=== PATIENT | male | born 1950 | race Caucasian/White ===

== ENCOUNTER 2018-12-27 09:48 | Inpatient (IN) | payer MEDICARE ==
[~2018-12-27] VITALS: Ht 188 cm; Wt 112.0 kg
[2018-12-27] MEDS ORDERED: ZESTORETIC 20-121 EA PO (10:26)
[2018-12-27] MEDS ORDERED: LO-DOSE ASPIRIN81 MG PO (10:31)
[2018-12-27 10:52] LABS: BASOPHILS ABSOLUTE AUTO 0.03 K/mm3 (0.00-0.23); BASOPHILS PERCENT AUTO 0 % (0-2); EOSINOPHILS ABSOLUTE AUTO 0.07 K/mm3 (0.00-0.68); EOSINOPHILS PERCENT AUTO 1 % (0-6); Hematocrit 47.2 % (37.0-53.0); Hemoglobin 16.6 g/dL (13.5-17.5); IMMATURE GRAN ABSOLUTE AUTO 0.05 K/mm3 (0.00-0.10); IMMATURE GRAN PERCENT AUTO 1 % (0-1); LYMPHOCYTES ABSOLUTE AUTO 1.33 K/mm3 (0.84-5.20); LYMPHOCYTES PERCENT AUTO 19 % (21-46); MONOCYTES ABSOLUTE AUTO 0.49 K/mm3 (0.16-1.47); MONOCYTES PERCENT AUTO 7 % (4-13); Mean Corpuscular HGB 31.7 pg (26.0-34.0); Mean Corpuscular HGB Conc 35.2 g/dL (31.5-36.5); Mean Corpuscular Volume 90 fL (80-100); Mean Platelet Volume 11.2 fL (9.1-12.4); NEUTROPHILS ABSOLUTE AUTO 5.23 K/mm3 (1.96-9.15); NEUTROPHILS PERCENT AUTO 73 % (41-73); Platelet Count 228 K/mm3 (150-400); RDW Coefficient Variation 12.1 % (11.7-14.2); RDW Standard Deviation 39.8 fL (35.1-46.3); Red Blood Cell Count 5.24 M/mm3 (4.30-5.90)
[2018-12-27 11:14] LABS: Alanine Aminotransfer (ALT/SGP 60 U/L (12-78); Albumin, Blood 3.9 g/dL (3.4-5.0); Albumin/Globulin Ratio 1.1 (0.8-1.8); Alk Phos 63 U/L (50-136); Anion Gap 6 mmol/L (6-16); Aspartate Aminotrans (AST/SGOT 40 U/L (12-37); Bilirubin, Total 0.8 mg/dL (0.1-1.0); Blood Urea Nitrogen 14 mg/dL (8-24); Bun/Creatinine Ratio 15.9 (12.0-20.0); CO2, Blood 27 mmol/L (21-32); Calcium, Blood 8.9 mg/dL (8.5-10.1); Chloride, Blood 99 mmol/L (98-108); Creatinine, Blood 0.88 mg/dL (0.60-1.20); Globulin, Blood 3.7 g/dL (2.2-4.0); Glomerular Filtration Rate >60 (60-); Glucose, Blood 154 mg/dL (70-99); Potassium, Blood 3.7 mmol/L (3.5-5.5); Sodium, Blood 132 mmol/L (136-145); Total Protein, Blood 7.6 g/dL (6.4-8.2)
[2018-12-27 11:15] LABS: Troponin I 0.026 ng/mL (0.000-0.040)
[2018-12-27] MEDS ORDERED: Salmon Oil 1,01 EACH PO (13:25)
[2018-12-27 13:49] LABS: International Normalized Ratio 1.04
[2018-12-27 13:53] LABS: Very Low Density Lipoprot Chol 39 mg/dL (6-32)
[2018-12-27 13:56] LABS: CHOL/HDL RATIO 8.1; Cholesterol 236 mg/dL (50-200); HDL Cholesterol 29 mg/dL (>39); LDL/HDL RATIO 5.8; Low Density Lipoprotein Chol 168 mg/dL (0-110); Triglycerides 195 mg/dL (30-160)
[2018-12-27] MEDS ORDERED: Vitamin D2000 UNIT PO (14:35)
--- NOTE | 2018-12-27 15:05 | NUR ---
PT ADMITTED PT ADMITTED AT 1428. PT IN STABLE CONDITION WITH VSS. PT ORIENTED TO ROOM & GIVEN CALL LIGHT IN. PT DENIES CP AT THIS TIME. TELE RUNNING NSR AT 79 PER TUBE BENDER HAND. WILL CONTINUE TO MONITOR UNTIL TURNOVER IS COMPLETE.
[2018-12-27 17:04] LABS: Source, Urine Voided
--- NOTE | 2018-12-27 17:11 | NUR ---
SHIFT SUMMARY NO CHANGES IN ASSESSMENT AT THIS TIME. VSS. PT STARTED ON HEPARIN DRIP. TOLERATING WELL. PT & EDUCATED ON POSSIBLE BLEEDING RELATED SIDE EFFECTS OF HEPARIN. PT DENIES CP AT THIS TIME. PT EDUCATED TO INFORM STAFF IRENE IF CP STARTS. WILL CONTINUE TO MONITOR UNTIL TURNOVER IS COMPLETE.
[2018-12-27 17:23] LABS: Bilirubin, Urine Neg (Neg); Blood, Urine Neg (Neg); Glucose Qualitative, Urine Neg (Neg); Ketones, Urine Neg (Neg); Leukocyte Esterase, Urine Neg (Neg); Nitrite, Urine Neg (Neg); Protein, Urine Neg (Neg); Urobilinogen, Urine NORM (Normal)
[2018-12-27 17:55] LABS: Appearance, Urine Clear (Clear); Color, Urine Yellow (P-Yellow)
--- NOTE | 2018-12-28 00:16 | NUR ---
12/28/18 0000 NPO AND SLEEPER WAS GIVEN EARLIER. DENIES ANY S/S OR DISCOMFORT. HEART MONITOR SHOWING SINUS KEVEN. AT 54 WITH FIRST DEGREE AV BLOCK PER BIAS BINDING CUTTER. HEPARIN DRIP RATE ADJUSTED PER PHARMACIST.
[2018-12-28 02:50] LABS: BASOPHILS ABSOLUTE AUTO 0.06 K/mm3 (0.00-0.23); BASOPHILS PERCENT AUTO 1 % (0-2); EOSINOPHILS ABSOLUTE AUTO 0.16 K/mm3 (0.00-0.68); EOSINOPHILS PERCENT AUTO 2 % (0-6); IMMATURE GRAN ABSOLUTE AUTO 0.02 K/mm3 (0.00-0.10); IMMATURE GRAN PERCENT AUTO 0 % (0-1); LYMPHOCYTES PERCENT AUTO 39 % (21-46); MONOCYTES ABSOLUTE AUTO 0.83 K/mm3 (0.16-1.47); MONOCYTES PERCENT AUTO 10 % (4-13); Mean Corpuscular HGB 31.4 pg (26.0-34.0); Mean Corpuscular HGB Conc 34.8 g/dL (31.5-36.5); Mean Corpuscular Volume 90 fL (80-100); Mean Platelet Volume 11.4 fL (9.1-12.4); NEUTROPHILS PERCENT AUTO 49 % (41-73); Platelet Count 248 K/mm3 (150-400); RDW Coefficient Variation 12.2 % (11.7-14.2); RDW Standard Deviation 40.2 fL (35.1-46.3); Red Blood Cell Count 5.09 M/mm3 (4.30-5.90); White Blood Cell Count 8.67 K/mm3 (4.00-11.30)
[2018-12-28 03:09] LABS: Albumin, Blood 3.6 g/dL (3.4-5.0); Anion Gap 7 mmol/L (6-16); Blood Urea Nitrogen 13 mg/dL (8-24); Bun/Creatinine Ratio 15.7 (12.0-20.0); CO2, Blood 26 mmol/L (21-32); Calcium, Blood 9.1 mg/dL (8.5-10.1); Chloride, Blood 103 mmol/L (98-108); Creatinine, Blood 0.83 mg/dL (0.60-1.20); Glomerular Filtration Rate >60 (60-); Glucose, Blood 102 mg/dL (70-99); Potassium, Blood 3.8 mmol/L (3.5-5.5); Sodium, Blood 136 mmol/L (136-145); Troponin I 0.391 ng/mL (0.000-0.040)
--- NOTE | 2018-12-28 07:39 | NUR ---
12/28/18 0630 AWAKE. DENIES ANY S/S OR DISCOMFORT. NPO SINCE MIDNIGHT FOR STRESS TEST THIS AM. BP DOWN SOME THIS AM AFTER EVENING BP MEDS GIVEN.
--- NOTE | 2018-12-28 14:02 | NUR ---
pt gave permission to assist in care on 12/28/2018.
--- NOTE | 2018-12-28 17:09 | NUR ---
SHIFT SUMMARY: PT A&OX4 THROUGHOUT SHIFT. PT AMBULATES IN ROOM. PT DENIES ANY CHEST PAIN DURING THIS SHIFT. FIRST PART OF STRESS TEST WAS PERFORMED THIS AM WITH 2ND PART SCHEDULED TOMORROW AT NOON. PT HAS BEEN CALM AND COOPERATIVE THROUGHOUT THE SHIFT.
--- NOTE | 2018-12-28 19:35 | NUR ---
SN ASSESSMENT I AGREE WITH THE NURSUNG STUDENTS ASSESMENT THIS SHIFT
--- NOTE | 2018-12-28 21:42 | NUR ---
aPTT IN RANGE: PT IS ON A HEP DRIPP, aPTT RETURNED AT 72.6, PHARM WAS CONTACTED, PT IS IN RANGE AT THIS TIME, NO ORDERS TO CHANGE THE RATE, WILL WAIT FOR NEXT aPTT DRAW. WILL CONTINUE TO MONITOR.
--- NOTE | 2018-12-29 00:50 | NUR ---
CHEST PAIN: MIDNIGHT - 0045. AROUND MIDNIGHT THE PT CALLED TO REPORT CHEST "TIGHTNESS" THAT HE DESCRIBES ABING IDENTICAL TO THE TYPE OF PAIN THAT HE HAS SUFFERED EARLER IN THE DAY. HE REPORTED HIS PAIN 5/10. THE TELE MONITOR REPORTED THAT HE WAS IN NSR IN TH 70'S. SHE ALSO REPORTED THAT HE DIPS DOWN INTO THE MID 40'S IN HEART RATE DURING SLEEP. AT 0010 HE WAS MUCH MORE SYMPTOMATIC, HE COULD NOT IDENTIFY A NUMBER FOR HIS PAIN, DIAPHORETIC, PALE, TACHYPNEIC AND MAKING WORDLESS WIMPERING SOUNDS. PT WAS ADMINISTERED NITROQUICK PER ORDER. AT 0013 HE RATED HIS PAIN 7/10, AT 0015 HIS PAIN WAS 4/10. AT THIS POINT HE REPORTED FEELING "BETTER". AT 0020 HE REPORTED HIS PAIN 2/10 AND HE APPEARED TO BE VERY RELAXED. AT 0045 PT WAS OBSERVED TO BE RESTING QUIETLY WITH HIS EYES CLOSED. NO FURTHER COMPLAINTS AT THIS TIME. WILL CONTINUE TO MONITOR.
--- NOTE | 2018-12-29 06:28 | NUR ---
VSS, AFEBRILE, A/O, SLEPT WELL OVERNOC, ONE EPISODE OF CP THAT RESOLVED WITH A SINGLE DOSE OF NITROSTAT. PT HAS BEEN NPO SINCE MIDNIGHT EXCEPT FOR A FEW SMALL SIPS OF WATER EARLY THIS MORNING. PT REPORTS FORGETTING THAT HE COULD NOT DRINK ANYMORE AFTER MIDNIGHT. PT IS INDEPENDENT, COOPERATIVE AND IN GOOD SPIRITS THIS MORNING. WILL REPORT TO ON-COMING SHIFT.
--- NOTE | 2018-12-29 11:50 | NUR ---
ANGIOGRAM THE PT WAS TAKEN TO THE BICYCLE DESIGNER FOR PROCEDURE AROUND 1030, PT WAS A/OX3, PLEASANT AND COOPERATIVE BREATHING EASILY ON RA AT TIME OF TRANSFER
--- NOTE | 2018-12-29 14:29 | NUR ---
Echocardiogram completed.
--- NOTE | 2018-12-29 17:41 | NUR ---
ASSUMED CARE OF PT AT 1330. PT WAS ALERT AND ORIENTED. CAME WITH PT FROM [facility]. VITAL SIGNS STABLE. INSERCTION SITE IN R WRIST. NO WARMTH, BLEEDING, OR SWELLING AT SITE. PT DENIES PAIN, CP, OR SOB. STARTED TO DEFLATE THE TR BAND AT 1530. WILL CONTINUE TO DEFLATE AND MONITOR UNTIL SHIFT CHANGE. CALL LIGHT IN REACH, BED IN LOWEST SETTING.
--- NOTE | 2018-12-29 22:03 | NUR ---
PCU NIGHTSHIFT ASSUMED CARE OF PT APPROX. 1899. PT A&OX4. ASSESSMENT COMPLETED. VITAL SIGNS STABLE. PT HAS RT RADIAL SITE. TR BAND REMAINS IN PLACE AT SHIFT CHANGE WITH 0CC OF AIR IN IT AT THIS TIME. ARMBOARD IN PLACE. OLD DRAINAGE NOTED. NO S/SX OF BLEEDING, HEMATOMA OR SWELLING. TR BAND REMOVED APPROX. 2044. TEGADERM PLACE OVER INCISION. ARMBOARD REMAINS IN PLACE. PT DENIES ANY PAIN. BED IN LOW POSITION, CALL LIGHT IN REACH AND PT DENIES ANY NEEDS AT THIS TIME.
--- NOTE | 2018-12-30 05:14 | NUR ---
SHIFT SUMMARY PT PLEASANT, COOPERATIVE AND USES CALL LIGHT APPROPRATELY. PT REMAINS A&O X4. ASSESSMENT FINDINGS REMAIN UNCHANGED. VITAL SIGNS REMAIN STABLE. PT RT RADIAL SITE HAS TEGADERM IN PLACE WITH ARMBOARD. NO S/SX OF BLEEDING, SWELLING, OR HEMATOMA. PT ABLE TO SLEEP FOR MOST OF SHIFT, AND OTHERWISE UNEVENTFUL NIGHT. BED IN LOW POSITION, CALL LIGHT IN REACH AND PT DENIES ANY NEEDS AT THIS TIME. WILL CONTINUE TO MONITOR UNTIL HANDOFF TO DAYSHIFT RN.
--- NOTE | 2018-12-30 08:48 | NUR ---
NURSING PCU DAYSHIFT: Assumed care of pt at approx 0700. A/O, pleasant, coopertaive w/care. Denies any pain/discomfort at rest. Ambulates independently w/o difficulty, no c/o dizziness/light headedness. Skin is intact w/no breakdown noted, R radial insertion site w/no bleed or hematoma noted, clear tegader and wrist board in place. Tele in place, SB/NSR, no c/o CP/pressure, SBP 120's prior to a.m. meds, no noted edema. L/S cta t/o, O2 sat upper 90's on RA, denies dyspnea, no noted cough. Abd SNT, BT+, voiding w/o difficulty per pt. PIV x1, s/l. No s/s of acute distress at this time. Spouse currently at bedside. Pt and s/o anticpating discharge home. Awaiting rounding from PMD, call light in reach, cont to monitor for any changes.
--- NOTE | 2018-12-30 10:53 | NUR ---
NURSING PCU DISCHARGE SUMMARY: No acute changes noted t/o the a.m. Seen by PMD and [employer] dist[employer] for discharge home. Discharge home d/o received. Pt and s/o verbalized understanding of all written and verbal discharge instructions. R radial site remains stable w/no s/s of bleed or hematoma. [facility], cont to monitor until discharge is complete.
[2018-12-30] MEDS ORDERED: ATOR40TA PO (11:35)
[2018-12-30] MEDS ORDERED: ACET325 PO (11:35)
[2018-12-30] MEDS ORDERED: CLOP75 PO (11:36)
[2018-12-30] MEDS ORDERED: LISI5 PO (11:36)
[2018-12-30] MEDS ORDERED: METO50ER PO (11:37)
[2018-12-30] MEDS ORDERED: NITR.4SL SL (11:39)
== END 2018-12-30 16:20 | disposition home or self-care (01) | DRG 247 ==
LOC: ER 09:48 → MEDS 09:49 → PCU 12-29 11:47
PROVIDERS: Emergency Medicine; ADMIT Internal Medicine
PROC: 027034Z Dilation of Coronary Artery, One Artery with Drug-eluting Intraluminal Device, Percutaneous Approach (ICD-10-PCS; principal; 2018-12-29)
PROC: B2111ZZ Fluoroscopy of Multiple Coronary Arteries using Low Osmolar Contrast (ICD-10-PCS; 2018-12-29)
DX: I21.4 Non-ST elevation (NSTEMI) myocardial infarction (principal); G89.29 Other chronic pain; M54.9 Dorsalgia, unspecified; K21.9 Gastro-esophageal reflux disease without esophagitis; I45.10 Unspecified right bundle-branch block; E66.9 Obesity, unspecified; Z68.32 Body mass index [BMI] 32.0-32.9, adult; Z79.82 Long term (current) use of aspirin; E78.5 Hyperlipidemia, unspecified; I10 Essential (primary) hypertension; I25.10 Atherosclerotic heart disease of native coronary artery without angina pectoris; E11.42 Type 2 diabetes mellitus with diabetic polyneuropathy; Z79.02 Long term (current) use of antithrombotics/antiplatelets
CPT/HCPCS: 36415; 71046; 80053; 80061; 80069; 81003; 82607; 82947; 83036; 84484; 85025; 85347; 85610; 85730; 92920; 93005; 93010; 93306; 93454; 96372; 96374; 96376; 99152; 99153; 99285-25; C1725; C1769; C1874; C1887; C1894; C9600; G0378; J1644; J2250; J3010; J7030; Q9967

== ENCOUNTER 2020-06-13 04:16 | Emergency (ER) | payer OTHER ==
[~2020-06-13] VITALS: Ht 185.4 cm; Wt 108.9 kg
[~2020-06-13 04:16] MED LIST: ACET325 PO; ATOR40TA PO; CLOP75 PO; LISI5 PO; LO-DOSE ASPIRIN81 MG PO; METO50ER PO; NITR.4SL SL; Salmon Oil 1,01 EACH PO; Vitamin D2000 UNIT PO; ZESTORETIC 20-121 EA PO
[2020-06-13] MEDS ORDERED: ROSU10TA PO (04:35)
[2020-06-13] MEDS ORDERED: AMLO5 PO (04:36)
[2020-06-13 05:14] LABS: Anion Gap 5 mmol/L (6-16); Blood Urea Nitrogen 15 mg/dL (8-24); CO2, Blood 30 mmol/L (21-32); Calcium, Blood 9.4 mg/dL (8.5-10.1); Chloride, Blood 104 mmol/L (98-108); Creatinine, Blood 0.88 mg/dL (0.60-1.20); Glomerular Filtration Rate >60 (60-); Glucose, Blood 114 mg/dL (70-99); Magnesium, Blood 2.4 mg/dL (1.6-2.4); Potassium, Blood 3.6 mmol/L (3.5-5.5); Sodium, Blood 139 mmol/L (136-145)
== END 2020-06-13 06:14 | disposition home or self-care (01) ==
LOC: ER 04:16
PROVIDERS: Student in an Organized Health Care Education/Training Program
DX: I48.91 Unspecified atrial fibrillation (principal); I10 Essential (primary) hypertension; K21.9 Gastro-esophageal reflux disease without esophagitis; E11.9 Type 2 diabetes mellitus without complications; E78.5 Hyperlipidemia, unspecified; Z79.02 Long term (current) use of antithrombotics/antiplatelets; Z95.5 Presence of coronary angioplasty implant and graft; Z87.891 Personal history of nicotine dependence; Z79.899 Other long term (current) drug therapy; Z79.82 Long term (current) use of aspirin
CPT/HCPCS: 36415; 80048; 83735; 93005; 93010; 96374; 99284-25

== ENCOUNTER 2021-03-29 23:18 | Emergency (ER) | payer OTHER, MEDICARE ==
[~2021-03-29] VITALS: Ht 185.4 cm; Wt 113.4 kg
[~2021-03-29 23:18] MED LIST changes: +AMLO5 PO; +ROSU10TA PO
[2021-03-30 00:11] LABS: BASOPHILS ABSOLUTE AUTO 0.05 K/mm3 (0.00-0.23); BASOPHILS PERCENT AUTO 1 % (0-2); EOSINOPHILS ABSOLUTE AUTO 0.14 K/mm3 (0.00-0.68); EOSINOPHILS PERCENT AUTO 2 % (0-6); Hematocrit 46.1 % (37.0-53.0); Hemoglobin 16.1 g/dL (13.5-17.5); IMMATURE GRAN ABSOLUTE AUTO 0.05 K/mm3 (0.00-0.10); IMMATURE GRAN PERCENT AUTO 1 % (0-1); LYMPHOCYTES PERCENT AUTO 36 % (21-46); MONOCYTES ABSOLUTE AUTO 0.89 K/mm3 (0.16-1.47); MONOCYTES PERCENT AUTO 12 % (4-13); Mean Corpuscular HGB 31.8 pg (26.0-34.0); Mean Corpuscular HGB Conc 34.9 g/dL (31.5-36.5); Mean Corpuscular Volume 91 fL (80-100); Mean Platelet Volume 11.1 fL (9.1-12.4); NEUTROPHILS ABSOLUTE AUTO 3.66 K/mm3 (1.96-9.15); NEUTROPHILS PERCENT AUTO 49 % (41-73); Platelet Count 251 K/mm3 (150-400); RDW Coefficient Variation 12.5 % (11.7-14.2); RDW Standard Deviation 41.2 fL (35.1-46.3); Red Blood Cell Count 5.06 M/mm3 (4.30-5.90); White Blood Cell Count 7.49 K/mm3 (4.00-11.30)
[2021-03-30 00:33] LABS: Alanine Aminotransfer (ALT/SGP 44 U/L (12-78); Albumin, Blood 3.8 g/dL (3.4-5.0); Albumin/Globulin Ratio 0.9 (0.8-1.8); Alk Phos 78 U/L (50-136); Anion Gap 8 mmol/L (6-16); Aspartate Aminotrans (AST/SGOT 29 U/L (12-37); Bilirubin, Total 0.4 mg/dL (0.1-1.0); Blood Urea Nitrogen 20 mg/dL (8-24); Bun/Creatinine Ratio 27.2 (12.0-20.0); CO2, Blood 27 mmol/L (21-32); Calcium, Blood 9.6 mg/dL (8.5-10.1); Chloride, Blood 102 mmol/L (98-108); Creatinine, Blood 0.73 mg/dL (0.60-1.20); Globulin, Blood 4.1 g/dL (2.2-4.0); Glomerular Filtration Rate >60 (60-); Glucose, Blood 186 mg/dL (70-99); Potassium, Blood 3.7 mmol/L (3.5-5.5); Sodium, Blood 137 mmol/L (136-145); Total Protein, Blood 7.9 g/dL (6.4-8.2); Troponin I <0.015 ng/mL (0.000-0.040)
[2021-03-30] MEDS ORDERED: GEMF600 PO (00:38)
[2021-03-30] MEDS ORDERED: LISI5 PO (00:39)
[2021-03-30] MEDS ORDERED: FINA5 PO (00:40)
[2021-03-30] MEDS ORDERED: ELIQUIS5 M2 PO (00:40)
[2021-03-30] MEDS ORDERED: FLUO60T (00:42)
== END 2021-03-30 02:52 | disposition home or self-care (01) ==
LOC: ER 23:18
PROVIDERS: Physician Assistant
DX: I48.91 Unspecified atrial fibrillation (principal); Z79.82 Long term (current) use of aspirin; Z79.899 Other long term (current) drug therapy
CPT/HCPCS: 36415; 71045; 80053; 83690; 84484; 85025; 93005; 93010; 96374; 99285-25; A9270; J7030

== ENCOUNTER 2025-04-28 21:29 | Emergency (ER) | payer OTHER ==
[~2025-04-28] VITALS: Ht 185.4 cm; Wt 117.9 kg
[~2025-04-28 21:29] MED LIST changes: +ASPIR 8181 M1 PO; +CEPH500 PO; +ELIQUIS5 M2 PO; +FINA5 PO; +FISH OIL 1,0001 EA10 PO; +FLUO60T; +GEMF600 PO; +METF500C PO
[2025-04-28] MEDS ORDERED: NS 1,000 ML IV SCH (23:50)
[2025-04-28] MEDS ORDERED: ACET500 PO (23:54)
[2025-04-28] MEDS ORDERED: GABA300 PO (23:54)
[2025-04-28] MEDS ORDERED: Ketorolac Tromethamine 15mg Vial IM ONE (23:55)
[2025-04-29 01:02] VITALS: BP 182/86
== END 2025-04-29 01:27 | disposition home or self-care (01) ==
LOC: ER 21:29
DX: M54.42 Lumbago with sciatica, left side (principal); I48.91 Unspecified atrial fibrillation; I10 Essential (primary) hypertension; K21.9 Gastro-esophageal reflux disease without esophagitis; E11.9 Type 2 diabetes mellitus without complications; E78.5 Hyperlipidemia, unspecified; Z79.899 Other long term (current) drug therapy; Z79.01 Long term (current) use of anticoagulants; Z79.82 Long term (current) use of aspirin
CPT/HCPCS: 96372; 99283; A9270; J1885